=== PATIENT | male | born 1970 | race Caucasian/White ===

== ENCOUNTER 2016-09-20 18:24 | Inpatient (IN) | payer OTHER ==
[~2016-09-20] VITALS: Ht 177.8 cm; Wt 83.1 kg
[~2016-09-20 18:24] MED LIST: ADA30 PO; AMLODIPINE BESY10 M1 PO; ASPIRIN EC81 M1 PO; AUG250 PO; BENTYL20 MG PO; CORE25 PO; Clonidine PO; ECO81 PO; ELA25 PO; LAC PO; LAC30L PO; LANTUS SOLOS100 U/M1 SQ; LEVOFLOXACIN500 M1 PO; LOSARTAN POTAS100 M1 PO; METFORMIN HCL1000 MG PO; METOCLOPRAMIDE5 M1 PO; MIN2.5 PO; NEP PO; NIFEDIPINE ER30 MG PO; ONDANSETRON HYDR4 MG PO; PANTOPRAZOLE SO40 M1 PO; PRI20 PO; PRILOSEC40 MG PO; PROMETHAZINE HY25 M1 PO; PROZ10 PO; REG10I IV; REGLAN5 M1 PO; SIMVASTATIN10 M1 PO; TOP50 PO; ZANTAC 150150 MG PO; ZES10 PO; ZOC10 PO; ZOFRAN ODT4 MG SL
[2016-09-20 19:27] LABS: BASOPHIL % 0.3 % (0-2)
[2016-09-20 19:32] LABS: PLATELET COUNT 411 x10^3mcL (130-400); RED CELL DISTRIBUTION WIDTH 15.4 % (11.5-14.5)
[2016-09-20 19:36] LABS: BILIRUBIN TOTAL 0.38 mg/dL (0.20-1.00); CALCIUM 9.8 mg/dL (8.5-10.1); CARBON DIOXIDE 29.9 mmol/L (21-32); POTASSIUM SERUM 4.3 mmol/L (3.5-5.1)
[2016-09-20 19:40] LABS: ALBUMIN 3.2 g/dL (3.4-5.0); TOTAL PROTEIN, SERUM 8.8 g/dL (6.4-8.2)
[2016-09-20 19:41] LABS: CREATININE SERUM 7.1 mg/dL (0.7-1.3)
[2016-09-20 21:52] VITALS: BP 138/87
[2016-09-20 22:25] LABS: MAGNESIUM 2.5 mg/dL (1.8-2.4); PHOSPHOROUS 5.6 mg/dL (2.5-4.9)
[2016-09-20 22:27] VITALS: BP 138/87
[2016-09-20 22:29] LABS: CHOLESTEROL/HDL RATIO 5.1
[2016-09-20 22:30] LABS: T3 TOTAL 0.83 ng/mL
[2016-09-20 22:35] LABS: FREE T4 0.99 ng/dL (0.76-1.46); FREE THYROXINE INDEX 2.8 ug/dL (1.4-4.5); T4(THYROXINE) 7.4 ug/dL (4.7-13.3)
[2016-09-21 06:01] VITALS: BP 154/100
[2016-09-21 08:17] LABS: BASOPHIL % 0.3 % (0-2); PLATELET COUNT 357 x10^3mcL (130-400)
[2016-09-21 08:23] LABS: UA SPECIFIC GRAVITY 1.015 (1.005-1.035); microscopic required? YES; urine erythrocyte TRACE (NEGATIVE)
[2016-09-21 08:25] LABS: RED CELL DISTRIBUTION WIDTH 15.4 % (11.5-14.5)
[2016-09-21 08:34] LABS: CALCIUM 8.9 mg/dL (8.5-10.1); CARBON DIOXIDE 29.8 mmol/L (21-32); MAGNESIUM 2.5 mg/dL (1.8-2.4); PHOSPHOROUS 7.6 mg/dL (2.5-4.9); POTASSIUM SERUM 4.1 mmol/L (3.5-5.1)
[2016-09-21 08:37] LABS: AMPHETAMINE QUAL UR NONE DETECTED (NEG <=1000)
[2016-09-21 08:45] LABS: CREATININE SERUM 8.1 mg/dL (0.7-1.3)
[2016-09-21 09:30] VITALS: BP 143/90
[2016-09-21 14:00] VITALS: BP 132/88
[2016-09-21 17:06] VITALS: BP 127/88
[2016-09-21 21:10] VITALS: BP 150/90
[2016-09-22 05:57] VITALS: BP 118/69
[2016-09-22 06:06] VITALS: BP 109/55
[2016-09-22 07:01] LABS: BASOPHIL % 0.7 % (0-2); PLATELET COUNT 360 x10^3mcL (130-400)
[2016-09-22 07:12] LABS: CALCIUM 9.2 mg/dL (8.5-10.1); CARBON DIOXIDE 30.5 mmol/L (21-32); POTASSIUM SERUM 4.5 mmol/L (3.5-5.1)
[2016-09-22 07:19] LABS: IRON 23 ug/dL (65-170); TOTAL IRON BINDING CAPACITY 191 ug/dL (250-450)
[2016-09-22 07:25] LABS: CREATININE SERUM 6.2 mg/dL (0.7-1.3)
[2016-09-22 10:04] VITALS: BP 117/72
[2016-09-22 17:41] VITALS: BP 115/70
[2016-09-22 22:00] VITALS: BP 115/72
[2016-09-23 05:26] VITALS: BP 107/68
[2016-09-23 08:51] VITALS: BP 104/65
[2016-09-23 17:01] VITALS: BP 145/82
[2016-09-23 20:15] VITALS: BP 101/52
[2016-09-24 05:22] VITALS: BP 129/80
[2016-09-24 06:25] LABS: CARBON DIOXIDE 30.4 mmol/L (21-32); PHOSPHOROUS 6.7 mg/dL (2.5-4.9); POTASSIUM SERUM 4.7 mmol/L (3.5-5.1)
[2016-09-24 06:39] LABS: BASOPHIL % 0.8 % (0-2); PLATELET COUNT 356 x10^3mcL (130-400)
[2016-09-24 06:53] LABS: RED CELL DISTRIBUTION WIDTH 15.3 % (11.5-14.5)
[2016-09-24 06:55] LABS: CREATININE SERUM 5.8 mg/dL (0.7-1.3)
[2016-09-24 10:42] VITALS: BP 135/85
[2016-09-24 18:26] VITALS: BP 106/61
[2016-09-24 21:19] VITALS: BP 119/78
[2016-09-25 05:23] VITALS: BP 109/69
[2016-09-25 06:21] LABS: BASOPHIL % 0.8 % (0-2); PLATELET COUNT 335 x10^3mcL (130-400)
[2016-09-25 06:31] LABS: CALCIUM 8.9 mg/dL (8.5-10.1); CARBON DIOXIDE 28.2 mmol/L (21-32); PHOSPHOROUS 8.4 mg/dL (2.5-4.9); POTASSIUM SERUM 4.5 mmol/L (3.5-5.1)
[2016-09-25 06:53] LABS: CREATININE SERUM 7.7 mg/dL (0.7-1.3)
[2016-09-25 07:38] LABS: RED CELL DISTRIBUTION WIDTH 15.6 % (11.5-14.5)
[2016-09-25] MEDS ORDERED: LIPI20 PO (10:02)
[2016-09-25 10:10] VITALS: BP 104/62
[2016-09-25] MEDS ORDERED: ANC1I IV (10:55)
[2016-09-25] MEDS ORDERED: ROC1I IM (11:04)
[2016-09-25] MEDS ORDERED: BD LACTINEX1.4 MG PO (11:26)
[2016-09-25] MEDS ORDERED: PRILOSEC OTC20 M1 PO (17:11)
[2016-09-25] MEDS ORDERED: NOR10 GT (17:13)
[2016-09-25 17:18] VITALS: BP 121/78
== END 2016-09-25 17:58 | disposition home health service (06) | DRG 622 ==
LOC: ED 18:24 → DU 21:06 → MU 09-22 09:33
PROVIDERS: Emergency Medicine; Family Medicine; Internal Medicine; ADMIT Family Medicine
PROC: 0JBN0ZZ Excision of Right Lower Leg Subcutaneous Tissue and Fascia, Open Approach (ICD-10-PCS; principal; 2016-09-21)
PROC: 0HBLXZZ Excision of Left Lower Leg Skin, External Approach (ICD-10-PCS; 2016-09-21)
PROC: 0HBKXZZ Excision of Right Lower Leg Skin, External Approach (ICD-10-PCS; 2016-09-21)
DX: E11.622 Type 2 diabetes mellitus with other skin ulcer (principal); K85.90 Acute pancreatitis without necrosis or infection, unspecified; L97.821 Non-pressure chronic ulcer of other part of left lower leg limited to breakdown of skin; L97.811 Non-pressure chronic ulcer of other part of right lower leg limited to breakdown of skin; M86.171 Other acute osteomyelitis, right ankle and foot; E44.0 Moderate protein-calorie malnutrition; I13.2 Hypertensive heart and chronic kidney disease with heart failure and with stage 5 chronic kidney disease, or end stage renal disease; I69.354 Hemiplegia and hemiparesis following cerebral infarction affecting left non-dominant side; E11.22 Type 2 diabetes mellitus with diabetic chronic kidney disease; E11.69 Type 2 diabetes mellitus with other specified complication; E11.51 Type 2 diabetes mellitus with diabetic peripheral angiopathy without gangrene; E11.42 Type 2 diabetes mellitus with diabetic polyneuropathy; E11.65 Type 2 diabetes mellitus with hyperglycemia; N18.6 End stage renal disease; N17.0 Acute kidney failure with tubular necrosis; F41.1 Generalized anxiety disorder; K76.0 Fatty (change of) liver, not elsewhere classified; E78.5 Hyperlipidemia, unspecified; F12.10 Cannabis abuse, uncomplicated; Z68.26 Body mass index [BMI] 26.0-26.9, adult; Z87.891 Personal history of nicotine dependence; Z79.82 Long term (current) use of aspirin; Z79.4 Long term (current) use of insulin; Z99.2 Dependence on renal dialysis; Z91.19 Patient's noncompliance with other medical treatment and regimen
CPT/HCPCS: 36600; 82962; 83880; 84439; A4719; C1751; J0295; J0690; J0696; J1170; J1642; J1644; J1885; J1956; J2001; J2270; J2405; J2916; J3490; J7030; J8597; Q0092

== ENCOUNTER 2016-09-30 19:52 | Emergency (ER) | payer OTHER ==
[~2016-09-30] VITALS: Ht 180.3 cm; Wt 83.0 kg
[~2016-09-30 19:52] MED LIST changes: +ANC1I IV; +BD LACTINEX1.4 MG PO; +LIPI20 PO; +NOR10 GT; +PRILOSEC OTC20 M1 PO; +ROC1I IM
[2016-09-30 21:44] LABS: CALCIUM 9.3 mg/dL (8.5-10.1); CARBON DIOXIDE 27.3 mmol/L (21-32); POTASSIUM SERUM 5.5 mmol/L (3.5-5.1)
[2016-09-30 21:46] LABS: BASOPHIL % 0.7 % (0-2); CREATININE SERUM 6.1 mg/dL (0.7-1.3)
[2016-09-30 21:49] LABS: ALBUMIN 3.2 g/dL (3.4-5.0); BILIRUBIN DIRECT 0.11 mg/dL (0.0-0.2); BILIRUBIN TOTAL 0.31 mg/dL (0.20-1.00); TOTAL PROTEIN, SERUM 8.8 g/dL (6.4-8.2)
[2016-09-30 21:56] LABS: PLATELET COUNT 473 x10^3mcL (130-400)
[2016-10-01 02:52] VITALS: BP 140/93
== END 2016-10-01 02:52 | disposition home or self-care (01) ==
LOC: ED 19:52
PROVIDERS: Emergency Medicine
DX: E86.1 Hypovolemia (principal); R42 Dizziness and giddiness; E11.22 Type 2 diabetes mellitus with diabetic chronic kidney disease; I12.0 Hypertensive chronic kidney disease with stage 5 chronic kidney disease or end stage renal disease; E78.5 Hyperlipidemia, unspecified; N18.6 End stage renal disease; Z99.2 Dependence on renal dialysis; Z90.89 Acquired absence of other organs
CPT/HCPCS: J7040; Q0092

== ENCOUNTER 2016-10-16 15:35 | Inpatient (IN) | payer OTHER ==
[~2016-10-16] VITALS: Ht 177.8 cm; Wt 83.2 kg
[2016-10-16 16:39] LABS: BASOPHIL % 0.6 % (0-2); PLATELET COUNT 338 x10^3mcL (130-400)
[2016-10-16 16:44] LABS: RED CELL DISTRIBUTION WIDTH 16.4 % (11.5-14.5)
[2016-10-16 16:48] LABS: ALBUMIN 3.6 g/dL (3.4-5.0); BILIRUBIN TOTAL 0.4 mg/dL (0.20-1.00); CALCIUM 9.4 mg/dL (8.5-10.1); CARBON DIOXIDE 32.3 mmol/L (21-32); POTASSIUM SERUM 5.3 mmol/L (3.5-5.1)
[2016-10-16 16:50] LABS: TOTAL PROTEIN, SERUM 8.4 g/dL (6.4-8.2)
[2016-10-16 20:20] VITALS: BP 194/120
[2016-10-16 20:32] VITALS: Ht 177.8 cm; Wt 83.2 kg
[2016-10-16 20:59] VITALS: BP 179/114
[2016-10-16 21:27] LABS: MAGNESIUM 2.4 mg/dL (1.8-2.4); PHOSPHOROUS 6.6 mg/dL (2.5-4.9)
[2016-10-16 21:30] LABS: T3 TOTAL 0.8 ng/mL
[2016-10-16 21:38] LABS: FREE T4 0.96 ng/dL (0.76-1.46); FREE THYROXINE INDEX 2.9 ug/dL (1.4-4.5); T4(THYROXINE) 7.9 ug/dL (4.7-13.3)
[2016-10-17 01:25] LABS: CALCIUM 9.1 mg/dL (8.5-10.1); CARBON DIOXIDE 28.5 mmol/L (21-32); POTASSIUM SERUM 4.8 mmol/L (3.5-5.1)
[2016-10-17 01:33] LABS: CREATININE SERUM 9.3 mg/dL (0.7-1.3)
[2016-10-17 06:00] VITALS: BP 186/109
[2016-10-17 06:41] LABS: BASOPHIL % 0.6 % (0-2); PLATELET COUNT 335 x10^3mcL (130-400)
[2016-10-17 06:45] LABS: RED CELL DISTRIBUTION WIDTH 16.1 % (11.5-14.5)
[2016-10-17 06:54] LABS: CALCIUM 9.4 mg/dL (8.5-10.1); CARBON DIOXIDE 28.8 mmol/L (21-32); MAGNESIUM 2.3 mg/dL (1.8-2.4); PHOSPHOROUS 7.5 mg/dL (2.5-4.9); POTASSIUM SERUM 4.7 mmol/L (3.5-5.1)
[2016-10-17 07:04] LABS: CREATININE SERUM 9.6 mg/dL (0.7-1.3)
[2016-10-17 10:35] VITALS: BP 198/122
[2016-10-17 11:18] LABS: AMPHETAMINE QUAL UR NONE DETECTED (NEG <=1000)
[2016-10-17 11:27] LABS: UA SPECIFIC GRAVITY 1.015 (1.005-1.035); microscopic required? YES; urine erythrocyte TRACE (NEGATIVE)
[2016-10-17 13:59] VITALS: BP 133/80
[2016-10-17 16:56] VITALS: BP 123/77
[2016-10-17 21:58] VITALS: BP 119/75
[2016-10-18 05:32] VITALS: BP 147/91
[2016-10-18 06:09] LABS: BASOPHIL % 0.6 % (0-2); PLATELET COUNT 310 x10^3mcL (130-400)
[2016-10-18 06:16] LABS: CALCIUM 8.8 mg/dL (8.5-10.1); PHOSPHOROUS 5.8 mg/dL (2.5-4.9); POTASSIUM SERUM 4.6 mmol/L (3.5-5.1)
[2016-10-18 06:25] LABS: CREATININE SERUM 6.6 mg/dL (0.7-1.3)
[2016-10-18 10:26] VITALS: BP 123/68
[2016-10-18 13:56] VITALS: BP 124/65
[2016-10-18 16:40] VITALS: BP 124/65
== END 2016-10-18 18:50 | disposition home or self-care (01) | DRG 73 ==
LOC: ED 15:35 → DU 18:43
PROVIDERS: Emergency Medicine; Family Medicine; Internal Medicine Nephrology; ADMIT Family Medicine
PROC: 5A1D00Z (ICD-10-PCS; principal; 2016-10-17)
DX: E11.43 Type 2 diabetes mellitus with diabetic autonomic (poly)neuropathy (principal); I50.43 Acute on chronic combined systolic (congestive) and diastolic (congestive) heart failure; N18.6 End stage renal disease; N17.0 Acute kidney failure with tubular necrosis; I13.2 Hypertensive heart and chronic kidney disease with heart failure and with stage 5 chronic kidney disease, or end stage renal disease; M86.171 Other acute osteomyelitis, right ankle and foot; F32.1 Major depressive disorder, single episode, moderate; E11.65 Type 2 diabetes mellitus with hyperglycemia; K31.84 Gastroparesis; E11.69 Type 2 diabetes mellitus with other specified complication; E11.621 Type 2 diabetes mellitus with foot ulcer; L97.529 Non-pressure chronic ulcer of other part of left foot with unspecified severity; L97.519 Non-pressure chronic ulcer of other part of right foot with unspecified severity; I16.0 Hypertensive urgency; E87.6 Hypokalemia; F42.4 Excoriation (skin-picking) disorder; F60.5 Obsessive-compulsive personality disorder; F41.1 Generalized anxiety disorder; F12.10 Cannabis abuse, uncomplicated; Z53.09 Procedure and treatment not carried out because of other contraindication; Z86.73 Personal history of transient ischemic attack (TIA), and cerebral infarction without residual deficits; Z99.2 Dependence on renal dialysis; Z79.4 Long term (current) use of insulin; Z68.28 Body mass index [BMI] 28.0-28.9, adult
CPT/HCPCS: 82962; 83880; 84439; A4719; C9113; J0360; J0696; J2270; J2765; J3370; J7030; J7040; J7050; J8597; Q0092; Q0163

== ENCOUNTER 2016-11-14 18:52 | Inpatient (IN) | payer OTHER ==
[~2016-11-14] VITALS: Ht 177.8 cm; Wt 80.0 kg
[2016-11-14 19:55] LABS: BASOPHIL % 0.4 % (0-2); PLATELET COUNT 396 x10^3mcL (130-400)
[2016-11-14 19:58] LABS: RED CELL DISTRIBUTION WIDTH 16.4 % (11.5-14.5)
[2016-11-14 20:37] LABS: ALBUMIN 3.8 g/dL (3.4-5.0); BILIRUBIN TOTAL 0.55 mg/dL (0.20-1.00); CALCIUM 9.9 mg/dL (8.5-10.1); CARBON DIOXIDE 27.3 mmol/L (21-32); POTASSIUM SERUM 4.6 mmol/L (3.5-5.1)
[2016-11-14 20:40] LABS: TOTAL PROTEIN, SERUM 8.9 g/dL (6.4-8.2)
[2016-11-14 20:45] LABS: CREATININE SERUM 10.7 mg/dL (0.7-1.3)
[2016-11-14 23:54] LABS: MAGNESIUM 2.3 mg/dL (1.8-2.4); PHOSPHOROUS 8.7 mg/dL (2.5-4.9)
[2016-11-14 23:57] LABS: CHOLESTEROL/HDL RATIO 6.4
[2016-11-15] VITALS (7 sets, daily range): BP systolic 99–179; BP diastolic 62–109; Ht 177.8 cm; Wt 80.0 kg
[2016-11-15 03:58] LABS: BASOPHIL % 0.3 % (0-2); PLATELET COUNT 391 x10^3mcL (130-400)
[2016-11-15 04:08] LABS: RED CELL DISTRIBUTION WIDTH 17.1 % (11.5-14.5)
[2016-11-15 04:13] LABS: CALCIUM 9.2 mg/dL (8.5-10.1); CARBON DIOXIDE 27.2 mmol/L (21-32); POTASSIUM SERUM 4.5 mmol/L (3.5-5.1)
[2016-11-15 04:15] LABS: CREATININE SERUM 10.7 mg/dL (0.7-1.3)
[2016-11-15 04:24] LABS: T3 TOTAL 0.6 ng/mL
[2016-11-15 04:29] LABS: FREE T4 0.86 ng/dL (0.76-1.46); FREE THYROXINE INDEX 2.7 ug/dL (1.4-4.5); T4(THYROXINE) 6.8 ug/dL (4.7-13.3)
[2016-11-16 00:08] VITALS: BP 122/67
[2016-11-16 05:22] VITALS: BP 139/82
[2016-11-16 06:36] LABS: BASOPHIL % 0.7 % (0-2); PLATELET COUNT 384 x10^3mcL (130-400)
[2016-11-16 06:42] LABS: RED CELL DISTRIBUTION WIDTH 16.7 % (11.5-14.5)
[2016-11-16 06:58] LABS: CALCIUM 9.1 mg/dL (8.5-10.1); CARBON DIOXIDE 29.5 mmol/L (21-32); POTASSIUM SERUM 3.9 mmol/L (3.5-5.1)
[2016-11-16 07:12] LABS: CREATININE SERUM 6.5 mg/dL (0.7-1.3)
[2016-11-16 08:37] VITALS: BP 118/66
[2016-11-16] MEDS ORDERED: LEVOFLOXACIN500 M1 PO (09:33)
[2016-11-16] MEDS ORDERED: CLINDAMYCIN HC300 MG PO (09:35)
[2016-11-16] MEDS ORDERED: LAC PO (09:36)
[2016-11-16] MEDS ORDERED: PHOS PO (09:37)
[2016-11-16 09:46] VITALS: BP 111/47; BP 133/70
[2016-11-16 13:07] VITALS: BP 133/70
== END 2016-11-16 15:40 | disposition home health service (06) | DRG 177 ==
LOC: ED 18:52 → DU 22:35
PROVIDERS: Emergency Medicine; ADMIT Family Medicine
DX: J69.0 Pneumonitis due to inhalation of food and vomit (principal); J96.00 Acute respiratory failure, unspecified whether with hypoxia or hypercapnia; N18.6 End stage renal disease; N17.0 Acute kidney failure with tubular necrosis; E44.0 Moderate protein-calorie malnutrition; I24.8 Other forms of acute ischemic heart disease; E11.43 Type 2 diabetes mellitus with diabetic autonomic (poly)neuropathy; K31.84 Gastroparesis; E11.65 Type 2 diabetes mellitus with hyperglycemia; E11.42 Type 2 diabetes mellitus with diabetic polyneuropathy; F42.4 Excoriation (skin-picking) disorder; F41.1 Generalized anxiety disorder; D63.1 Anemia in chronic kidney disease; E78.5 Hyperlipidemia, unspecified; F12.10 Cannabis abuse, uncomplicated; Z99.2 Dependence on renal dialysis; Z79.4 Long term (current) use of insulin
CPT/HCPCS: 82962; 83880; 84439; 94150; J1815; J1956; J2270; J2405; J3490; J7030; J7040; J8597; Q0092

== ENCOUNTER 2016-12-27 20:34 | Emergency (ER) | payer OTHER ==
[~2016-12-27 20:34] MED LIST changes: +CLINDAMYCIN HC300 MG PO; +PHOS PO
[2016-12-27 20:55] VITALS: BP 158/89
== END 2016-12-27 22:23 | disposition left against medical advice (07) ==
LOC: ED 20:34
DX: M79.89 Other specified soft tissue disorders (principal); Z53.21 Procedure and treatment not carried out due to patient leaving prior to being seen by health care provider